=== PATIENT | female | born 1985 | race Hispanic/Latino ===

== ENCOUNTER 2016-05-07 14:59 | Inpatient (IN) | payer BC, MEDICAID ==
[~2016-05-07] VITALS: Ht 167.6 cm; Wt 88.5 kg
[2016-05-07] VITALS (8 sets, daily range): BP systolic 96–153; RESP 16–18; TEMP 97.6; Ht 167.6 cm; Wt 88.5 kg
[~2016-05-07 14:59] MED LIST: OXYTOCIN 10 UNITS/ML VIAL IV ONE
[2016-05-07] MEDS ORDERED: CEFAZOLIN (LD/OB) 100 ML IV PRN (17:15)
[2016-05-07] MEDS ORDERED: TERBUTALINE 1 MG/ML VIAL SUBQ PRN (17:15)
[2016-05-07] MEDS ORDERED: ALU/MAG/SIM 30 ML UDC PO PRN (17:15)
[2016-05-07] MEDS ORDERED: LIDOCAINE 1% BUFFERED 1 ML SYR INTRADERM PRN ×2 (17:15→20:40)
[2016-05-07] MEDS ORDERED: FAMOTIDINE 20 MG TAB PO PRN (17:15)
[2016-05-07] MEDS ORDERED: ACETAMINOPHEN 325 MG TAB PO PRN (17:15)
[2016-05-07] MEDS ORDERED: ONDANSETRON 4 MG VIAL IV PRN ×4 (17:15→21:45)
[2016-05-07] MEDS ORDERED: FAMOTIDINE 20 MG INJ IV PRN (17:15)
[2016-05-07] MEDS ORDERED: METOCLOPRAMIDE 10 MG/2 ML VIAL IV PUSH PRN (17:15)
[2016-05-07] MEDS ORDERED: OXYTOCIN 15 UNITS/250 ML NS 250 ML IV SCH ×2 (17:15→21:45)
[2016-05-07] MEDS ORDERED: PROMETHAZINE 25 MG/ML VIAL IV PRN ×2 (17:15→20:40)
[2016-05-07] MEDS ORDERED: LIDOCAINE 1% 30 ML PF INFILTRATE ONE (17:15)
[2016-05-07] MEDS: LACT RINGERS 1,000 ML IV SCH ×2 (17:47→18:37)
[2016-05-07] MEDS ORDERED: OXYCODONE 5 MG TAB PO PRN (20:40)
[2016-05-07] MEDS ORDERED: DIPHENHYDRAMINE 50 MG/ML VIAL IV PRN (20:40)
[2016-05-07] MEDS ORDERED: LACT RINGERS 1,000 ML IV SCH ×2 (20:40→21:45)
[2016-05-07] MEDS ORDERED: MORPHINE 2 MG/ML SYR IV PRN ×2 (20:40)
[2016-05-07] MEDS ORDERED: FAMOTIDINE 20 MG INJ IV ONE (20:40)
[2016-05-07] MEDS ORDERED: NALOXONE 0.4 MG/ML AMP IV PRN (20:40)
[2016-05-07] MEDS ORDERED: MEPERIDINE 25 MG/ML IV PRN (20:40)
[2016-05-07] MEDS ORDERED: METOCLOPRAMIDE 10 MG/2 ML VIAL IV PUSH ONE (20:40)
[2016-05-07] MEDS ORDERED: BUTORPHANOL 1 MG/ML VIAL IV PRN (20:40)
[2016-05-07] MEDS ORDERED: DILAUDID 1 MG/ML AMP IV PRN (20:40)
[2016-05-07] MEDS ORDERED: SALINE FLUSH 10 ML FLUSH PRN ×2 (20:40→21:45)
[2016-05-07] MEDS ORDERED: CEFAZOLIN (LD/OB) 100 ML IV ONE (20:40)
[2016-05-07] MEDS ORDERED: MORPHINE 4 MG/ML SYR IV PRN ×2 (20:40)
[2016-05-08] VITALS (7 sets, daily range): BP systolic 121–138; RESP 16–20; TEMP 97.7–99
[2016-05-08] MEDS: KETOROLAC 30 MG/ML VIAL IV SCH ×4 (00:09→17:18)
[2016-05-08] MEDS: SODIUM CHLORIDE 0.9% FLUSH BAG 500 ML IV SCH ×2 (05:55)
[2016-05-08] MEDS: SALINE FLUSH 10 ML FLUSH SCH ×3 (08:00→20:00)
[2016-05-08] MEDS: DOCUSATE SOD 100 MG CAP PO SCH (09:05)
[2016-05-08] MEDS ORDERED: NIVEA CR 56 GM TUBE TOPICAL ONE (10:42)
[2016-05-08] MEDS: KETOROLAC 10 MG TAB PO PRN (23:57)
[2016-05-09 05:21] VITALS: BP_SYST 119; TEMP 98.8
[2016-05-09] MEDS: SODIUM CHLORIDE 0.9% FLUSH BAG 500 ML IV SCH ×2 (06:00)
[2016-05-09] MEDS: KETOROLAC 10 MG TAB PO PRN ×2 (08:30→16:05)
[2016-05-09] MEDS: DOCUSATE SOD 100 MG CAP PO SCH (08:31)
[2016-05-09] MEDS: METFORMIN XR 500 MG TAB PO SCH (08:31)
[2016-05-09 17:41] VITALS: BP_SYST 140; TEMP 98.9
[2016-05-09 17:42] VITALS: RESP 24
[2016-05-09] MEDS: SALINE FLUSH 10 ML FLUSH SCH ×2 (19:56→19:57)
[2016-05-10] MEDS: SODIUM CHLORIDE 0.9% FLUSH BAG 500 ML IV SCH ×2 (06:00)
[2016-05-10 06:07] VITALS: BP_SYST 128; RESP 16; TEMP 98.2
[2016-05-10] MEDS: SALINE FLUSH 10 ML FLUSH SCH ×2 (07:21)
[2016-05-10 09:10] VITALS: BP_SYST 135; TEMP 98.2
[2016-05-10 09:11] VITALS: RESP 20
[2016-05-10] MEDS: DOCUSATE SOD 100 MG CAP PO SCH (09:51)
[2016-05-10] MEDS: METFORMIN XR 500 MG TAB PO SCH (09:52)
[2016-05-10 09:58] VITALS: BP_SYST 135; RESP 20; TEMP 98.2
[2016-05-10 12:24] VITALS: BP_SYST 135; RESP 20; TEMP 98.2
[2016-05-10] MEDS: KETOROLAC 10 MG TAB PO PRN (12:35)
== END 2016-05-10 13:25 | disposition home or self-care (01) | DRG 766 ==
LOC: LDOP 14:59 → OBSVTOIN 17:28 → LD 17:28 → OB 05-08 00:54
PROVIDERS: ADMIT Specialist; ATTEND Specialist
PROC: 10D00Z1 Extraction of Products of Conception, Low, Open Approach (ICD-10-PCS; principal; 2016-05-07)
PROC: 10907ZC Drainage of Amniotic Fluid, Therapeutic from Products of Conception, Via Natural or Artificial Opening (ICD-10-PCS; 2016-05-07)
DX: O24.425 Gestational diabetes mellitus in childbirth, controlled by oral hypoglycemic drugs (principal); O76 Abnormality in fetal heart rate and rhythm complicating labor and delivery; Z37.0 Single live birth; Z3A.40 40 weeks gestation of pregnancy
CPT/HCPCS: 36415; 59025; 80053; 81002; 82803; 82947; 85025; 88307